=== PATIENT | female | born 1995 | race Caucasian/White ===

== ENCOUNTER 2025-01-03 13:29 | Outpatient (CLI) | payer MEDICARE, SELFPAY | END 2025-01-03 13:30 | disposition home or self-care (01) | LOC: NFLDREF 01-06 02:14 | PROVIDERS: PCP Internal Medicine; Referring Provider Internal Medicine; Visit Provider Internal Medicine | DX: D68.61 Antiphospholipid syndrome (principal); Z79.01 Long term (current) use of anticoagulants | CPT/HCPCS: 85610 ==

== ENCOUNTER 2025-05-25 11:26 | Outpatient (CLI) | payer MEDICARE, MEDICAID, SELFPAY | END 2025-05-25 11:27 | disposition home or self-care (01) | LOC: NFLDREF 05-26 20:31 | PROVIDERS: PCP Internal Medicine; Referring Provider Internal Medicine; Visit Provider Internal Medicine | DX: D68.61 Antiphospholipid syndrome (principal); Z79.01 Long term (current) use of anticoagulants | CPT/HCPCS: 85610 ==

== ENCOUNTER 2025-06-19 09:49 | Outpatient (CLI) | payer MEDICARE, MEDICAID, SELFPAY ==
--- NOTE | 2025-06-19 10:00 | CRLHL7_ITS ---
For Patients: As a result of the Century Cures Act, medical imaging exams and procedure reports are released immediately into your electronic medical record. You may view this report before your referring provider. If you have questions, please contact your health care provider. Indication: sinus headaches and deviated nasal septum Technique: Performed without IV contrast Comparison: None available Findings: Frontal sinuses: Mild mucosal thickening within the frontal sinuses noted bilaterally. Ethmoid sinuses: Clear. Maxillary sinuses: Moderate mucosal thickening within the right maxillary sinus. The sinus drainage pathway is partially obstructed. Associated mucous retention cysts are present on the right measuring up to 1.3 cm. Mild mucosal thickening inferior left maxillary sinus with patency of the left-sided sinus drainage pathway. Sphenoid sinuses: Near-complete opacification of the left sphenoid sinus with obstruction of the sphenoethmoidal recess. The right sphenoid sinus is clear with patency of the sphenoethmoidal recess. Nasal Cavity: Rightward curvature of the nasal septum is present. Paradoxical turn of the left middle turbinate. Nonobstructing dillan bullosa on the left measures 1 cm. Small right-sided nasal septal spur. No TMJ abnormalities identified. The visualized portions of the orbits, intracranial contents and upper soft tissue neck are grossly negative. Impression: 1. Severe left sphenoid sinus disease. 2. Moderate right maxillary sinus disease. 3. Milder sinus disease elsewhere. 4. Rightward deviation of the nasal septum with a dillan bullosa within the left middle turbinate. Please note that all CT scans at this facility use dose modulation, iterative reconstruction, and/or weight-based dosing when appropriate to reduce radiation dose to as low as reasonably achievable. Dictated by Fabrizio Child MD @ 06/19/2025 12:09:14 PM (Electronically Signed)
== END 2025-06-19 09:50 | disposition home or self-care (01) ==
LOC: CT 09:50
PROVIDERS: PCP Internal Medicine; Visit Provider Physician Assistant
DX: J34.2 Deviated nasal septum (principal); J32.0 Chronic maxillary sinusitis; J32.3 Chronic sphenoidal sinusitis; R51.9 Headache, unspecified
CPT/HCPCS: 70486

== ENCOUNTER 2025-07-17 10:02 | Outpatient (CLI) | payer MEDICARE, MEDICAID, SELFPAY | END 2025-07-17 10:03 | disposition home or self-care (01) | LOC: NFLDREF 07-19 14:13 | PROVIDERS: PCP Internal Medicine; Referring Provider Internal Medicine; Visit Provider Internal Medicine | DX: Z79.01 Long term (current) use of anticoagulants (principal) | CPT/HCPCS: 85610 ==